=== PATIENT | male | born 1945 | race Native Hawaiian/Other Pacific Islander ===

== ENCOUNTER 2021-01-21 20:28 | Inpatient (IN) | payer MEDICARE, MEDICAID ==
[~2021-01-21] VITALS: Ht 167.6 cm; Wt 63.0 kg
[2021-01-21] MEDS ORDERED: MethylPREDNISolone SOD SUCC 125 MG/2 ML VIAL IVP ONE (20:45)
[2021-01-21] MEDS ORDERED: IPRATROPIUM BROMIDE 0.5 MG/2.5 ML NEB SOLUTION NEB ONE (20:45)
[2021-01-21] MEDS ORDERED: MAGNESIUM SULFATE 2 GM/WATER 50 ML IV ONE (20:45)
[2021-01-21] MEDS ORDERED: ALBUTEROL SULFATE 5 MG/ML 20 ML NEB SOLN [BULK] NEB ONE (20:45)
[2021-01-21 21:06] LABS: COVID AG,FIA SOURCE NASOPHARYNGEAL
[2021-01-21 21:09] LABS: BASOPHILS % (AUTO) 0.3 % (0.0-2.0); EOSINOPHILS % (AUTO) 0.7 % (1.0-6.0); HEMATOCRIT 46.7 % (41-53); HEMOGLOBIN 15.1 g/dL (13.5-17.5); LYMPHOCYTES # (AUTO) 6.1 K/uL (1.0-4.8); LYMPHOCYTES % (AUTO) 36.8 % (22.0-44.0); MEAN CORPUSCULAR HEMOGLOBIN 29.5 pg (26.0-34.0); MEAN CORPUSCULAR HGB CONC 32.4 G/dL (31.0-37.0); MEAN CORPUSCULAR VOLUME 91 fL (80-100); MONOCYTES # (AUTO) 1.4 K/uL (0.1-1.0); MONOCYTES % (AUTO) 8.6 % (2.0-9.0); NEUTROPHILS % (AUTO) 53.6 % (40.0-70.0); PLATELET COUNT (AUTO) 286 K/uL (150-450); RED BLOOD CELL COUNT(AUTO) 5.13 MIL/uL (4.50-5.90); RED CELL DISTRIBUTION WIDTH 14.7 % (11.5-14.5)
[2021-01-21 21:16] LABS: ABG A-A DIFF O2 62.6 mmHg (10-20.0); ABG BASE EXCESS 1.2 mmol/L (-2.0-3.0); ABG CARBOXYHEMOGLOBIN 0.5 % (0.0-1.5); ABG HCO3 25.2 mmol/L (22.0-26.0); ABG METHEMOGLOBIN 0.3 % (0.0-1.5); ABG OXYGEN CONTENT 21.6 mL/dL (15.0-23.0); ABG OXYGEN SATURATION 97.7 % (95.0-98.0); ABG OXYHEMOGLOBIN 96.9 % (94.0-100.0); ABG PCO2 45 mmHg (35-45); ABG PH 7.387 (7.35-7.450); ABG TOTAL HEMOGLOBIN 15.8 G/dL (12.0-18.0); O2 DEVICE,BLOOD GAS BIPAP (ROOM AIR); PO2, ARTERIAL BG 98.9 mmHg (75.0-83.0); SITE, BLOOD GAS RT RADIAL; SOURCE, BLOOD GAS ARTERIAL; TEMPERATURE, FAHRENHEIT, BG 98.6 FAHREN (96.0-98.6)
[2021-01-21 21:18] LABS: ANION GAP 5 mmol/L (8-16); CALCIUM, TOTAL 8.8 mg/dL (8.8-10.5); CARBON DIOXIDE 34 mmol/L (22-29); CHLORIDE 102 mmol/L (98-107); CREATININE 0.81 mg/dL (0.60-1.30); GLOMERULAR FILTR. RATE CALC > 60 mL/min (>60); GLUCOSE,RANDOM 138 mg/dL (70-110); POTASSIUM 3.7 mmol/L (3.5-5.1); SODIUM SERUM 141 mmol/L (136-145); UREA NITROGEN, BLOOD 15 mg/dL (7-18)
[2021-01-21 21:24] LABS: ALANINE AMINOTRANSFERASE 47 U/L (12-78); ALBUMIN 3.7 g/dL (3.4-5.0); ALKALINE PHOSPHATASE 133 U/L (46-116); ASPARTATE AMINOTRANSFERASE 20 U/L (15-37); BILIRUBIN,TOTAL 0.4 mg/dL (0.1-1.0); TOTAL PROTEIN, SERUM 7.1 g/dL (6.4-8.2)
[2021-01-21 21:35] LABS: B-TYPE NATRIURETIC PEPTIDE 18 pg/mL (0-100)
[2021-01-21] MEDS ORDERED: ALBUTEROL SULFATE 2.5 MG/0.5 ML NEB SOLUTION NEB PRN (21:45)
[2021-01-21] MEDS ORDERED: IPRATROPIUM BROMIDE 0.5 MG/2.5 ML NEB SOLUTION NEB PRN (21:45)
[2021-01-21] MEDS ORDERED: ACETAMINOPHEN 325 MG TABLET PO PRN (21:45)
[2021-01-21] MEDS ORDERED: ONDANSETRON HCL 4 MG/2 ML VIAL IVP PRN (21:45)
[2021-01-21] MEDS: AZITHROMYCIN 500 MG/NS 250 ML IV SCH (21:58)
[2021-01-21 22:45] LABS: LACTIC ACID 2.2 mmol/L (0.4-2.0)
[2021-01-21] MEDS ORDERED: AMLO-257 PO (22:59)
[2021-01-21] MEDS ORDERED: TICA90TA PO (22:59)
[2021-01-21] MEDS ORDERED: TELM1TAB31 PO (22:59)
[2021-01-21] MEDS ORDERED: FLUT1AER7 IH (22:59)
[2021-01-21] MEDS ORDERED: ASPI-1450 PO (22:59)
[2021-01-21] MEDS ORDERED: ALBU8HFA IH (22:59)
[2021-01-21] MEDS ORDERED: TIOT185 IH (22:59)
[2021-01-21] MEDS ORDERED: ATOR40TA28 PO (22:59)
[2021-01-21] MEDS ORDERED: AZIT200S61 PO (22:59)
[2021-01-21] MEDS ORDERED: OMEP20 PO (22:59)
[2021-01-21] MEDS ORDERED: SODIUM CHLORIDE 0.9% 500 ML IV ONE (23:00)
[2021-01-21] MEDS: HEPARIN SODIUM,PORCINE 5,000 UNITS/ML VIAL SQ SCH (23:17)
[2021-01-22 02:19] VITALS: BP 133/74
[2021-01-22] MEDS ORDERED: SODIUM CHLORIDE 0.9% 1,000 ML IV ONE ×2 (03:00→16:15)
[2021-01-22 04:11] VITALS: BP 124/59
[2021-01-22] MEDS: SODIUM CHLORIDE 0.9% 1,000 ML IV SCH ×2 (04:29→21:47)
[2021-01-22] MEDS ORDERED: IOHEXOL 350 MG/ML 150 ML VIAL ONE (05:27)
[2021-01-22] MEDS ORDERED: SODIUM CHLORIDE 0.9% 100 ML ONE (05:27)
[2021-01-22] MEDS ORDERED: ALBUTEROL SULFATE HFA 90 MCG/PUFF 8 GM INHALER IH PRN (05:30)
[2021-01-22 06:02] LABS: BASOPHILS % (AUTO) 0.1 % (0.0-2.0); EOSINOPHILS % (AUTO) 0 % (1.0-6.0); HEMATOCRIT 41.2 % (41-53); HEMOGLOBIN 13.4 g/dL (13.5-17.5); LYMPHOCYTES # (AUTO) 0.4 K/uL (1.0-4.8); MEAN CORPUSCULAR HEMOGLOBIN 29.5 pg (26.0-34.0); MEAN CORPUSCULAR HGB CONC 32.7 G/dL (31.0-37.0); MEAN CORPUSCULAR VOLUME 90 fL (80-100); MONOCYTES # (AUTO) 0.2 K/uL (0.1-1.0); MONOCYTES % (AUTO) 1.1 % (2.0-9.0); NEUTROPHILS # (AUTO) 14.1 K/uL (1.8-7.7); PLATELET COUNT (AUTO) 244 K/uL (150-450); RED BLOOD CELL COUNT(AUTO) 4.55 MIL/uL (4.50-5.90); RED CELL DISTRIBUTION WIDTH 14.6 % (11.5-14.5)
[2021-01-22 06:30] LABS: NEUTROPHILS % (AUTO) 95.8 % (40.0-70.0)
[2021-01-22] MEDS: AmLODIPine BESYLATE 5 MG TABLET PO SCH (06:33)
[2021-01-22 06:45] LABS: ANION GAP 6 mmol/L (8-16); CARBON DIOXIDE 28 mmol/L (22-29); CHLORIDE 108 mmol/L (98-107); GLUCOSE,RANDOM 136 mg/dL (70-110); POTASSIUM 3.6 mmol/L (3.5-5.1); SODIUM SERUM 142 mmol/L (136-145)
[2021-01-22] MEDS ORDERED: SODIUM CHLORIDE 0.9% 500 ML IV ONE (06:45)
[2021-01-22 06:46] LABS: CALCIUM, TOTAL 7.8 mg/dL (8.8-10.5); CREATININE 0.74 mg/dL (0.60-1.30); GLOMERULAR FILTR. RATE CALC > 60 mL/min (>60); UREA NITROGEN, BLOOD 12 mg/dL (7-18)
[2021-01-22 07:31] LABS: APPEARANCE,URINE CLEAR (CLEAR); BILIRUBIN,URINE NEGATIVE (NEGATIVE); GLUCOSE, URINE (UA) NEGATIVE (NEGATIVE); KETONES,URINE NEGATIVE (NEGATIVE); LEUKOCYTE ESTERASE ,URINE NEGATIVE (NEGATIVE); NITRATE,URINE NEGATIVE (NEGATIVE); OCCULT BLOOD,URINE NEGATIVE (NEGATIVE); PROTEIN,URINE NEGATIVE (NEGATIVE); UROBILINOGEN,URINE 0.2 mg/dL (<=1.0)
[2021-01-22 07:37] VITALS: BP 128/65
[2021-01-22] MEDS: HEPARIN SODIUM,PORCINE 5,000 UNITS/ML VIAL SQ SCH ×2 (08:31→17:04)
[2021-01-22] MEDS: TELMISARTAN 40 MG TABLET PO SCH ×2 (08:32→21:51)
[2021-01-22] MEDS: ATORVASTATIN CALCIUM 40 MG TABLET PO SCH (08:32)
[2021-01-22] MEDS: HYDROCHLOROTHIAZIDE 25 MG TABLET PO SCH ×2 (08:32→21:48)
[2021-01-22] MEDS: TIOTROPIUM BROMIDE 18 MCG/INH HANDIHALER [5] IH SCH (08:32)
[2021-01-22] MEDS: OMEPRAZOLE 20 MG CAPSULE PO SCH ×2 (08:32→21:47)
[2021-01-22] MEDS: ASPIRIN 81 MG CHEWABLE TABLET PO SCH (08:33)
[2021-01-22] MEDS: TICAGRELOR 90 MG TABLET PO SCH ×2 (08:33→21:47)
[2021-01-22] MEDS ORDERED: [UNRECOGNIZED DRUG - OTHER] PO SCH (09:00)
[2021-01-22] MEDS ORDERED: ISOS30TA92 PO (10:57)
[2021-01-22] MEDS ORDERED: ASPI-1444 PO (10:57)
[2021-01-22] MEDS ORDERED: TELM40 PO (10:57)
[2021-01-22] MEDS ORDERED: AZIT-84 PO (10:57)
[2021-01-22] MEDS ORDERED: FLUT1BLS9 IH (10:57)
[2021-01-22 11:31] VITALS: BP 135/60
[2021-01-22] MEDS: FLUTICASONE/SALMETEROL 250-50 MCG/INH INHALER [60] IH SCH ×2 (12:25→21:47)
[2021-01-22] MEDS: MethylPREDNISolone SOD SUCC 40 MG/ML VIAL IVP SCH ×2 (12:25→17:23)
[2021-01-22 15:40] LABS: LACTIC ACID 4.1 mmol/L (0.4-2.0)
[2021-01-22 16:11] VITALS: BP 122/70
[2021-01-22 19:35] VITALS: BP 116/77
[2021-01-22] MEDS: AZITHROMYCIN 500 MG/NS 250 ML IV SCH (21:48)
[2021-01-23 00:12] VITALS: BP 128/75
[2021-01-23] MEDS: MethylPREDNISolone SOD SUCC 40 MG/ML VIAL IVP SCH ×2 (00:40→06:09)
[2021-01-23] MEDS: HEPARIN SODIUM,PORCINE 5,000 UNITS/ML VIAL SQ SCH ×3 (00:40→15:31)
[2021-01-23 04:30] VITALS: BP 132/76
[2021-01-23 06:04] LABS: BASOPHILS % (AUTO) 0.1 % (0.0-2.0); EOSINOPHILS % (AUTO) 0 % (1.0-6.0); HEMATOCRIT 41.8 % (41-53); HEMOGLOBIN 13.7 g/dL (13.5-17.5); LYMPHOCYTES # (AUTO) 0.9 K/uL (1.0-4.8); LYMPHOCYTES % (AUTO) 4.4 % (22.0-44.0); MEAN CORPUSCULAR HEMOGLOBIN 29.7 pg (26.0-34.0); MEAN CORPUSCULAR HGB CONC 32.8 G/dL (31.0-37.0); MEAN CORPUSCULAR VOLUME 90 fL (80-100); MONOCYTES # (AUTO) 0.8 K/uL (0.1-1.0); MONOCYTES % (AUTO) 3.8 % (2.0-9.0); NEUTROPHILS # (AUTO) 19.3 K/uL (1.8-7.7); PLATELET COUNT (AUTO) 253 K/uL (150-450); RED BLOOD CELL COUNT(AUTO) 4.63 MIL/uL (4.50-5.90); RED CELL DISTRIBUTION WIDTH 14.5 % (11.5-14.5)
[2021-01-23] MEDS: SODIUM CHLORIDE 0.9% 1,000 ML IV SCH ×2 (06:09→15:31)
[2021-01-23] MEDS: AmLODIPine BESYLATE 5 MG TABLET PO SCH (06:13)
[2021-01-23 06:35] LABS: CALCIUM, TOTAL 8.3 mg/dL (8.8-10.5); CARBON DIOXIDE 29 mmol/L (22-29); CREATININE 0.57 mg/dL (0.60-1.30); GLUCOSE,RANDOM 123 mg/dL (70-110); POTASSIUM 3.6 mmol/L (3.5-5.1); UREA NITROGEN, BLOOD 11 mg/dL (7-18)
[2021-01-23 06:43] LABS: ANION GAP 7 mmol/L (8-16); CHLORIDE 106 mmol/L (98-107); SODIUM SERUM 142 mmol/L (136-145)
[2021-01-23 06:44] LABS: GLOMERULAR FILTR. RATE CALC > 60 mL/min (>60)
[2021-01-23 06:51] LABS: NEUTROPHILS % (AUTO) 91.7 % (40.0-70.0)
[2021-01-23 07:22] VITALS: BP 146/71
[2021-01-23] MEDS: FLUTICASONE/SALMETEROL 250-50 MCG/INH INHALER [60] IH SCH (08:40)
[2021-01-23] MEDS: TIOTROPIUM BROMIDE 18 MCG/INH HANDIHALER [5] IH SCH (08:40)
[2021-01-23] MEDS: TICAGRELOR 90 MG TABLET PO SCH (08:40)
[2021-01-23] MEDS: ASPIRIN 81 MG CHEWABLE TABLET PO SCH (08:40)
[2021-01-23] MEDS: TELMISARTAN 40 MG TABLET PO SCH (08:41)
[2021-01-23] MEDS: ATORVASTATIN CALCIUM 40 MG TABLET PO SCH (08:41)
[2021-01-23] MEDS: HYDROCHLOROTHIAZIDE 25 MG TABLET PO SCH (08:41)
[2021-01-23] MEDS: OMEPRAZOLE 20 MG CAPSULE PO SCH (08:42)
[2021-01-23] MEDS ORDERED: PredniSONE 20 MG TABLET PO SCH (12:00)
[2021-01-23 12:01] VITALS: BP 145/78
[2021-01-23 14:59] VITALS: BP 137/68
== END 2021-01-23 15:40 | disposition left against medical advice (07) | DRG 189 ==
LOC: EMS 20:32 → ICU 23:00 → 5S 01-22 01:49
PROVIDERS: ADMIT Internal Medicine; ATTEND Internal Medicine
PROC: 5A09357 Assistance with Respiratory Ventilation, Less than 24 Consecutive Hours, Continuous Positive Airway Pressure (ICD-10-PCS; principal; 2021-01-21)
DX: J96.01 Acute respiratory failure with hypoxia (principal); E87.2 Acidosis; R65.10 Systemic inflammatory response syndrome (SIRS) of non-infectious origin without acute organ dysfunction; J44.1 Chronic obstructive pulmonary disease with (acute) exacerbation; I25.10 Atherosclerotic heart disease of native coronary artery without angina pectoris; I51.3 Intracardiac thrombosis, not elsewhere classified; I10 Essential (primary) hypertension; E78.5 Hyperlipidemia, unspecified; Z20.822 Contact with and (suspected) exposure to COVID-19; Z87.891 Personal history of nicotine dependence; Z79.02 Long term (current) use of antithrombotics/antiplatelets; Z95.5 Presence of coronary angioplasty implant and graft; Z79.899 Other long term (current) drug therapy; Z79.82 Long term (current) use of aspirin; Z88.2 Allergy status to sulfonamides
CPT/HCPCS: 36600; 71045; 71275; 72191; 74175; 80048; 80053; 81003; 82805; 83605; 83735; 83880; 84484; 85025; 85379; 87040; 92610; 93005; 94644; 94660; 97116; 97161; 97165; 97530; 97535; 99291; A9575; G0378; J0456; J1644; J2920; J2930; J3475; J3535; J7030; J7040; J7050; 36415-L1; 36415-TC